=== PATIENT | male | born 1970 | race Caucasian/White ===

== ENCOUNTER 2016-05-16 13:56 | Inpatient (IN) | payer OTHER ==
[2016-05-16 15:38] VITALS: BMI 22.3
--- NOTE | 2016-05-16 17:19 | HP ---
CIWA Score - CIWA Score Nausea/Vomitin Muscle Tremors: 2 Anxiety: 3 Agitation: 3 Paroxysmal Sweats: 3 Orientation: 0-Oriented Tacttile Disturbances: 2-Mild Itch/Numbness/Burn Auditory Disturbances: 0-None Visual Disturbances: 0-None Headache: 1-Very Mild CIWA-Ar Total Score: 17 Admission ROS BHS - HPI Chief Complaint: I need help to stop using drugs . Allergies/Adverse Reactions: Allergies Allergy/AdvReac Type Severity Reaction Status Date / Time No Known Allergies Allergy Verified 05/16/16 16:23 History of Present Illness: 45 y/o m pt with h/o xanax and adeerall dep. seeking detox. Exam Limitations: No Limitations - Ebola screening Have you traveled outside of the country in the last 21 days: No Have you had contact with anyone from an Ebola affected area: No Have you been sick,other than usual withdrawal symptoms: No Do you have a fever: No - Review of Systems Constitutional: Loss of Appetite, Changes in sleep, Weakness, Unexplained wgt Loss EENT: reports: Blurred Vision, Nose Congestion (post nasal drip) Respiratory: reports: No Symptoms reported Cardiac: reports: No Symptoms Reported GI: reports: Indigestion, Abdominal cramping : reports: Frequency Musculoskeletal: reports: Muscle Pain Endocrine: reports: No Symptoms Reported Hematology: reports: No Symptoms Reported Psychiatric: reports: Agitated, Anxious, Depressed Other Systems: Reviewed and Negative Patient History - Patient Medical History Hx Anemia: No Hx Asthma: No Hx Chronic Obstructive Pulmonary Disease (COPD): No Hx Cancer: No Hx Cardiac Disorders: Yes (HX of AFIB.) Hx Congestive Heart Failure: No Hx Hypertension: No Hx Hypercholesterolemia: Yes Hx Pacemaker: No HX Cerebrovascular Accident: No Hx Seizures: No Hx Dementia: No Hx Diabetes: No Hx Gastrointestinal Disorders: No Hx Liver Disease: No Hx Genitourinary Disorders: No Hx Sexually Transmitted Disorders: No Hx Renal Disease (ESRD): No Hx Thyroid Disease: No Hx Depression: Yes Hx Suicide Attempt: No Hx Bipolar Disorder: No Hx Schizophrenia: No - Patient Surgical History Past Surgical History: Yes Other Surgical History: Lipoma removed from r shoulder. Hemmorhoidectomy - PPD History Previous Implant?: Yes Documented Results: Negative w/o proof Implanted On Prior R Admission?: No PPD to be Administered?: Yes - Reproductive History Patient is a Female of Child Bearing Age (11 -55 yrs old): Yes - Smoking Cessation Smoking history: Former smoker Have you smoked in the past 12 months: No If you are a former smoker, when did you quit?: 1996 Cigars Per Day: 0 Hx Chewing Tobacco Use: No Initiated information on smoking cessation: No 'Breaking Loose' booklet given: 05/16/16 - Substance & Tx. History Hx Alcohol Use: No Hx Substance Use: Yes Substance Use Type: Prescribed, Tranquilizers Hx Substance Use Treatment: No - Substances Abused Alprazolam (Xanax) Route: Oral Frequency: Daily Amount used: 4-5 mg Age of first use: 38 Date of Last Use: 05/16/16 Marijuana/Hashish Route: Smoking Frequency: Daily Amount used: 2-3 joints Age of first use: 14 Date of Last Use: 05/16/16 adderall Route: Oral Frequency: Daily Amount used: 120 mg Age of first use: 40 Date of Last Use: 05/16/16 Family Disease History - Family Disease History Family Disease History: Heart Disease: Father (cad , 3 stents , dm ), Other: Father Admission Physical Exam S - Vital Signs Vital Signs: Vital Signs - 24 hr 05/16/16 15:36 Temperature 97.0 F L Pulse Rate 75 Respiratory 18 Rate Blood Pressure 111/64 45 y/o m pt aox3 , anxious , nervous appearing but cooperative with exam . - Physical General Appearance: Yes: Appropriately Dressed, Thin, Tremorous, Irritable, Anxious HEENTM: Yes: EOMI, Hearing grossly Normal, Normal ENT Inspection, Normocephalic , Normal Voice, ADAM Respiratory: Yes: Chest Non-Tender, Lungs Clear, Normal Breath Sounds, No Respiratory Distress Neck: Yes: Supple Breast: Yes: Within Normal Limits Cardiology: Yes: Regular Rhythm, Regular Rate, S1, S2 Abdominal: Yes: Non Tender, Flat, Soft, Increased Bowel Sounds Genitourinary: Yes: Frequency Back: Yes: Within Normal Limits, Decreased Range of Motion Musculoskeletal: Yes: Back pain, Joint Stiffness, Muscle Pain Extremities: Yes: Tremors (mild) Neurological: Yes: division service manager II-XII NML intact, Fully Oriented, Alert, Motor Strength 5/5, Normal Response Integumentary: Yes: Moist Lymphatic: Yes: Within Normal Limits - Diagnostic (1) Sedative, hypnotic or anxiolytic dependence with withdrawal, uncomplicated Current Visit: Yes Status: Chronic (2) Adderall use disorder, moderate Current Visit: Yes Status: Chronic Cleared for Admission [facility] - Detox or Rehab [facility] Level of Care: Medically Managed Detox Regimen/Protocol: Valium [facility] Breath Alcohol Content Breath Alcohol Content: 0 Urine Drug Screen - Results Drug Screen Negative: No Urine Drug Screen Results: THC-Marijuana, AMP-Amphetamines, BZO-Benzodiazepines
[2016-05-16] MEDS ORDERED: MAGNESIUM CITRATE 300 ML BOTTLE PO PRN (17:38)
[2016-05-16] MEDS ORDERED: LOPERAMIDE HCL 2 MG CAPSULE PO PRN (17:38)
[2016-05-16] MEDS ORDERED: MENTHOL/PHENOL 1 EACH UD MM PRN (17:38)
[2016-05-16] MEDS ORDERED: IBUPROFEN 400 MG TABLET (FP) PO PRN (17:38)
[2016-05-16] MEDS ORDERED: ACETAMINOPHEN 325 MG TABLET (FP) PO PRN (17:38)
[2016-05-16] MEDS ORDERED: hydrOXYzine PAMOATE 25 MG CAPSULE (FP) PO PRN (17:38)
[2016-05-16] MEDS ORDERED: diphenhydrAMINE HCL 50 MG CAPSULE PO PRN (17:38)
[2016-05-16] MEDS ORDERED: MAG HYDROX/AL HYDROX/SIMETH 30 ML UNIT-DOSE CUP PO PRN (17:38)
[2016-05-16] MEDS ORDERED: MAGNESIUM HYDROX 2400MG/30ML ORAL SUSPENSION 30 ML CUP PO PRN (17:38)
[2016-05-16] MEDS ORDERED: P-EPHED 60MG/TRIPROLIDI 2.5MG TABLET PO PRN (17:38)
[2016-05-16] MEDS ORDERED: guaiFENesin/D-METHORPHAN HB 10 ML UNIT-DOSE CUPS PO PRN (17:38)
[2016-05-16] MEDS ORDERED: AMMONIUM LACTATE 12% LOTION 225 GM BOTTLE TP PRN (17:41)
[2016-05-16] MEDS ORDERED: diazePAM 5 MG TABLET PO ONE (18:15)
[2016-05-16] MEDS: THIAMINE HCL 100 MG TABLET (FP) PO SCH (22:07)
[2016-05-16] MEDS: diazePAM 5 MG TABLET PO SCH (22:08)
[2016-05-16 22:49] LABS: URINE APPEARANCE CLEAR; URINE BILIRUBIN NEGATIVE (NEGATIVE); URINE BLOOD NEGATIVE (NEGATIVE); URINE COLOR STRAW; URINE GLUCOSE (UA) NEGATIVE (NEGATIVE); URINE KETONE NEGATIVE (NEGATIVE); URINE LEUK ESTERASE NEGATIVE (NEGATIVE); URINE NITRITE NEGATIVE (NEGATIVE); URINE PROTEIN NEGATIVE (NEGATIVE); URINE UROBILINOGEN NEGATIVE E.U./dl (0.2-1.0)
[2016-05-17] MEDS: diazePAM 5 MG TABLET PO SCH ×3 (05:54→22:32)
--- NOTE | 2016-05-17 09:12 | CONSULT ---
[facility] Psychiatric Consult - Data Date of interview: 05/17/16 Admission source: [facility] Identifying data: This is 45 years old male with no psychiatric hospitalization history intoxuicated with: Xanax and Adderal Substance Abuse History: - Smoking Cessation. Smoking history: Former smoker. Have you smoked in the past 12 months: No. If you are a former smoker, when did you quit?: 1996. Cigars Per Day: 0. Hx Chewing Tobacco Use: No. Initiated information on smoking cessation: No. 'Breaking Loose' booklet given : 05/16/16. - Substance & Tx. History. Hx Alcohol Use: No. Hx Substance Use: Yes. Substance Use Type: Prescribed, Tranquilizers. Hx Substance Use Treatment : No. - Substances Abused. Alprazolam (Xanax). Route: Oral. Frequency: Daily. Amount used: 4-5 mg. Age of first use: 38. Date of Last Use: . Marijuana/Hashish. Route: Smoking. Frequency: Daily. Amount used: 2- 3 joints. Age of first use: 14. Date of Last Use: 05/16/16. adderall. Route: Oral. Frequency: Daily. Amount used: 120 mg. Age of first use: 40. Date of Last Use: 05/16/16 Medical History: Denies Psychiatric History: Reports taking prior to admission:Seroquel 200mg po qhs. Prozac 40mg poqd. Patoent reprots anxiety and depression, reports no history of psychiatric admissions Physical/Sexual Abuse/Trauma History: Denies Additional Comment: Seroquel 200mg po qhs. Prozac 40mg poqd Mental Status Exam - Mental Status Exam Alert and Oriented to: Person Cognitive Function: Fair Patient Appearance: Unkempt Mood: Sad Affect: Flat Patient Behavior: Sedated Speech Pattern: Delayed Voice Loudness: Mildly Soft/Quiet Thought Process: Circumstantial Thought Disorder: Being Controlled Hallucinations: Denies Suicidal Ideation: Denies Homicidal Ideation: Denies Insight/Judgement: Fair Sleep: Difficulty falling asleep Appetite: Fair Muscle strength/Tone: Normal Gait/Station: Shuffling Additional Comments: Seroquel 200mg po qhs. Prozac 40mg poqd Psychiatric Findings - Problem List ([place] 1, 2,3) (1) Adderall use disorder, moderate Current Visit: Yes Status: Chronic (2) Sedative, hypnotic or anxiolytic dependence with withdrawal, uncomplicated Current Visit: Yes Status: Chronic (3) Drug-induced mood disorder Current Visit: Yes Status: Acute (4) ADHD (attention deficit hyperactivity disorder) Current Visit: Yes Status: Acute - Initial Treatment Plan Initial Treatment Plan: Seroquel 200mg po qhs. Prozac 40mg poqd
[2016-05-17 10:11] LABS: MCH 30.3 pg (25.7-33.7); MCHC 34.4 g/dl (32.0-35.9); MEAN CELL VOLUME 88.2 fl (80-96); MEAN PLT VOLUME 8.6 fl (7.5-11.1); PLATELET COUNT 216 K/MM3 (134-434); RDW 12.5 % (11.9-15.9); WHITE BLOOD COUNT 8.4 K/mm3 (4.0-10.0)
[2016-05-17] MEDS: FLUoxetine HCL 20 MG CAPSULE (FP) PO SCH (10:11)
[2016-05-17] MEDS: PRENATAL VITAMINS W/ FOLIC ACID TABLET (FP) PO SCH (10:11)
[2016-05-17] MEDS: diazePAM 5 MG TABLET PO PRN ×2 (10:15→20:36)
[2016-05-17 10:27] LABS: ALBUMIN 3.8 g/dl (3.4-5.0); ANION GAP 6 (8-16); BILIRUBIN,TOTAL 0.5 mg/dL (0.2-1.0); CO2 31 mmol/L (21-32); GLUCOSE,RANDOM 88 mg/dL (74-106); SGOT/AST 19 U/L (15-37); SGPT/ALT 24 U/L (12-78)
[2016-05-17 10:28] LABS: ALK PHOS 60 U/L (45-117); CALCIUM 9.2 mg/dL (8.5-10.1); CREATININE 0.8 mg/dL (0.7-1.3); TOT PROT 6.8 g/dl (6.4-8.2)
--- NOTE | 2016-05-17 10:48 | PN ---
S CIWA - CIWA Score Nausea/Vomitin Muscle Tremors: 3 Anxiety: 4-Mod. Anxious/Guarded Agitation: 2 Paroxysmal Sweats: 3 Orientation: 0-Oriented Tacttile Disturbances: 1-Very Mild Itch/Numbness Auditory Disturbances: 0-None Visual Disturbances: 0-None Headache: 0-None Present CIWA-Ar Total Score: 15 BHS Progress Note (SOAP) Subjective: interrupted sleep, sweats, bodyache , decreased appetite, dry skin Objective: 05/17/16 10:47 Vital Signs Temperature 97.1 F L 05/17/16 09:57 Pulse Rate 73 05/17/16 09:57 Respiratory Rate 18 05/17/16 09:57 Blood Pressure 135/68 05/17/16 09:57 O2 Sat by Pulse Oximetry (%) Laboratory Tests 05/16/16 05/17/16 05/17/16 22:41 07:00 07:00 WBC 8.4 RBC 4.80 Hgb 14.6 Hct 42.3 MCV 88.2 MCHC 34.4 RDW 12.5 Plt Count 216 MPV 8.6 Sodium 143 Potassium 4.5 Chloride 106 Carbon Dioxide 31 Anion Gap 6 L BUN 8 Creatinine 0.8 Creat Clearance w eGFR > 60 Random Glucose 88 Calcium 9.2 Total Bilirubin 0.5 AST 19 ALT 24 Alkaline Phosphatase 60 Total Protein 6.8 Albumin 3.8 Urine Color Straw Urine Appearance Clear Urine pH 7.0 Ur Specific Blanket 1.008 Urine Protein Negative Urine Glucose (UA) Negative Urine Ketones Negative Urine Blood Negative Urine Nitrite Negative Urine Bilirubin Negative Urine Urobilinogen Negative Ur Leukocyte Esterase Negative pt aox3, anxious , ambulating Assessment: 05/17/16 10:47 withdrawal sx's Plan: cont. detox increase fluids psych eval ensure bid
--- NOTE | 2016-05-17 11:05 | EKG ---
Test Reason : Blood Pressure : / mmHG Vent. Rate : 069 BPM Atrial Rate : 069 BPM P-R Int : 146 ms QRS Dur : 090 ms QT Int : 402 ms P-R-T Axes : 073 081 067 degrees QTc Int : 430 ms NORMAL SINUS RHYTHM MODERATE VOLTAGE CRITERIA FOR LVH, MAY BE NORMAL VARIANT BORDERLINE ECG NO PREVIOUS ECGS AVAILABLE Confirmed by EMILIANO MACK MD ([id number]) on 05/17/2016 11:04:59 AM Referred By: Confirmed By:EMILIANO MACK MD
[2016-05-17 12:21] LABS: HIV 1 & 2 AB NEGATIVE; HIV 1 AGp24 NEGATIVE
[2016-05-17] MEDS: QUEtiapine FUMARATE 100 MG TABLET (FP) PO SCH (22:32)
[2016-05-17] MEDS: THIAMINE HCL 100 MG TABLET (FP) PO SCH (22:32)
[2016-05-18] MEDS: FLUoxetine HCL 20 MG CAPSULE (FP) PO SCH (10:24)
[2016-05-18] MEDS: diazePAM 5 MG TABLET PO SCH ×2 (10:24→22:08)
[2016-05-18] MEDS: PRENATAL VITAMINS W/ FOLIC ACID TABLET (FP) PO SCH (10:24)
--- NOTE | 2016-05-18 10:31 | PN ---
S CIWA - CIWA Score Nausea/Vomitin-No Nausea/No Vomiting Muscle Tremors: 4-Moderate,w/Arms Extend Anxiety: 3 Agitation: 4-Moderately Restless Paroxysmal Sweats: 3 Orientation: 0-Oriented Tacttile Disturbances: 0-None Auditory Disturbances: 0-None Visual Disturbances: 0-None Headache: 0-None Present CIWA-Ar Total Score: 14 BHS Progress Note (SOAP) Subjective: agitation anxiety sweats interrupted sleep Objective: 05/18/16 10:30 Vital Signs Temperature 98.1 F 05/18/16 09:23 Pulse Rate 86 05/18/16 09:23 Respiratory Rate 18 05/18/16 09:23 Blood Pressure 124/86 05/18/16 09:23 O2 Sat by Pulse Oximetry (%) Laboratory Tests 05/16/16 05/17/16 05/17/16 22:41 07:00 07:00 WBC 8.4 RBC 4.80 Hgb 14.6 Hct 42.3 MCV 88.2 MCHC 34.4 RDW 12.5 Plt Count 216 MPV 8.6 Sodium Potassium Chloride Carbon Dioxide Anion Gap BUN Creatinine Creat Clearance w eGFR Random Glucose Calcium Total Bilirubin AST ALT Alkaline Phosphatase Total Protein Albumin Urine Color Straw Urine Appearance Clear Urine pH 7.0 Ur Specific [place] 1.008 Urine Protein Negative Urine Glucose (UA) Negative Urine Ketones Negative Urine Blood Negative Urine Nitrite Negative Urine Bilirubin Negative Urine Urobilinogen Negative Ur Leukocyte Esterase Negative RPR Titer HIV 1&2 Antibody Screen Negative HIV P24 Antigen Negative 05/17/16 05/17/16 07:00 07:00 WBC RBC Hgb Hct MCV MCHC RDW Plt Count MPV Sodium 143 Potassium 4.5 Chloride 106 Carbon Dioxide 31 Anion Gap 6 L BUN 8 Creatinine 0.8 Creat Clearance w eGFR > 60 Random Glucose 88 Calcium 9.2 Total Bilirubin 0.5 AST 19 ALT 24 Alkaline Phosphatase 60 Total Protein 6.8 Albumin 3.8 Urine Color Urine Appearance Urine pH Ur Specific [place] Urine Protein Urine Glucose (UA) Urine Ketones Urine Blood Urine Nitrite Urine Bilirubin Urine Urobilinogen Ur Leukocyte Esterase RPR Titer Nonreactive HIV 1&2 Antibody Screen HIV P24 Antigen awake/alert ambulating no acute distress Assessment: 05/18/16 10:30 withdrawal sx Plan: continue detox increase fluids
[2016-05-18] MEDS: diazePAM 5 MG TABLET PO PRN (18:14)
[2016-05-18] MEDS: QUEtiapine FUMARATE 100 MG TABLET (FP) PO SCH (22:09)
[2016-05-18] MEDS: THIAMINE HCL 100 MG TABLET (FP) PO SCH (22:09)
[2016-05-19] MEDS: PRENATAL VITAMINS W/ FOLIC ACID TABLET (FP) PO SCH (10:08)
[2016-05-19] MEDS: FLUoxetine HCL 20 MG CAPSULE (FP) PO SCH (10:08)
[2016-05-19] MEDS: diazePAM 5 MG TABLET PO SCH ×2 (10:09→22:21)
--- NOTE | 2016-05-19 11:46 | PN ---
S Progress Note (SOAP) Subjective: ALERT,IRRITABLE,ANXIOUS,INTERRUPTED SLEEP Objective: 05/19/16 11:44 Vital Signs Temperature 98.2 F 05/19/16 10:10 Pulse Rate 89 05/19/16 10:10 Respiratory Rate 18 05/19/16 10:10 Blood Pressure 126/80 05/19/16 10:10 O2 Sat by Pulse Oximetry (%) Assessment: 05/19/16 11:45 WITHDRAWAL SYMPTOM Plan: CONTINUE DETOX,DISCHARGE IN AM
[2016-05-19] MEDS: diazePAM 5 MG TABLET PO PRN (17:25)
[2016-05-19] MEDS: QUEtiapine FUMARATE 100 MG TABLET (FP) PO SCH (22:21)
[2016-05-19] MEDS: THIAMINE HCL 100 MG TABLET (FP) PO SCH (22:21)
--- NOTE | 2016-05-20 08:28 | PN ---
S Progress Note (SOAP) Subjective: ALERT,NO COMPLAINT Objective: 05/20/16 08:27 Vital Signs Temperature 97.9 F 05/20/16 06:00 Pulse Rate 76 05/20/16 06:00 Respiratory Rate 18 05/20/16 06:00 Blood Pressure 121/77 05/20/16 06:00 O2 Sat by Pulse Oximetry (%) Assessment: 05/20/16 08:27 DETOX COMPLETED,NO WITHDRAWAL SYMPTOM Plan: DISCHARGE TODAY
--- NOTE | 2016-05-20 08:31 | DS ---
[facility] Detox Discharge Summary Admission Date: 05/16/16 Discharge Date: 05/20/16 - History Present History: Cannabis Dependence, Sedative Dependence Additional Comments: FOLLOW UP WITH AFTER CARE PROGRAM ARRANGEMENT AND PMD FOR MEDICAL PROBLEM AND OWN PSYCHIATRIST Pertinent Past History: ADHD - Physical Exam Results Vital Signs: Vital Signs Temperature 97.9 F 05/20/16 06:00 Pulse Rate 76 05/20/16 06:00 Respiratory Rate 18 05/20/16 06:00 Blood Pressure 121/77 05/20/16 06:00 O2 Sat by Pulse Oximetry (%) Pertinent Admission Physical Exam Findings: WITHDRAWAL SYMPTOM - Treatment Hospital Course: Detox Protocol Followed, Detoxed Safely, Responded well, Discharged Condition Good Patient has Accepted a Rehab Referral to: DECLINED - Medication Discharge Medications: Ambulatory Orders Fluoxetine HCl [Prozac -] 40 mg PO DAILY 05/16/16 Quetiapine Fumarate [Seroquel -] 200 mg PO HS 05/16/16 Ranitidine [Zantac -] 150 mg PO BID 05/16/16 Fluoxetine HCl [Prozac -] 40 mg PO DAILY #30 05/17/16 Fluoxetine HCl [Prozac -] 40 mg PO DAILY #30 capusle 05/17/16 Quetiapine Fumarate [Seroquel -] 200 mg PO HS #30 tab 05/17/16 Dextroamphetamine/Amphetamine [Adderall 10 mg Tablet] 20 mg PO TID 05/18/16 - AMA Did Patient Leave Against Medical Advice: No
[2016-05-20 09:48] VITALS: BP 130/75; PULSE 97; TEMP 97.7
[2016-05-20] MEDS: PRENATAL VITAMINS W/ FOLIC ACID TABLET (FP) PO SCH (09:53)
[2016-05-20] MEDS: FLUoxetine HCL 20 MG CAPSULE (FP) PO SCH (09:53)
[2016-05-20] MEDS ORDERED: diazePAM 5 MG TABLET PO SCH (10:00)
== END 2016-05-20 10:25 | disposition home or self-care (01) | DRG 748 ==
LOC: YASAS 13:56 → Y6N 17:52
PROVIDERS: ADMIT Internal Medicine Addiction Medicine; ATTEND Internal Medicine Addiction Medicine
PROC: HZ2ZZZZ Detoxification Services for Substance Abuse Treatment (ICD-10-PCS; principal; 2016-05-20)
DX: F13.230 Sedative, hypnotic or anxiolytic dependence with withdrawal, uncomplicated (principal); F19.24 Other psychoactive substance dependence with psychoactive substance-induced mood disorder; F90.9 Attention-deficit hyperactivity disorder, unspecified type
CPT/HCPCS: 36415; 80053; 81003; 85027; 86593; 87389; 93005; 93010